=== PATIENT | female | born 1950 ===

== ENCOUNTER 2022-04-24 06:00 | Outpatient (RCR) | payer MEDICARE, SELFPAY | END 2022-05-20 23:59 | disposition home or self-care (01) | LOC: MPT 06:00 | PROVIDERS: Referring Provider Nurse Practitioner Family; Visit Provider Nurse Practitioner Family | DX: M54.50 Low back pain, unspecified (principal); M25.551 Pain in right hip | CPT/HCPCS: 97110; 97140; 97162; G0283 ==

== ENCOUNTER 2022-05-21 06:00 | Outpatient (RCR) | payer MEDICARE, SELFPAY | END 2022-06-19 12:16 | disposition home or self-care (01) | LOC: MPT 06:00 | PROVIDERS: Visit Provider Nurse Practitioner Family | DX: M54.50 Low back pain, unspecified (principal) | CPT/HCPCS: 97110; G0283 ==